=== PATIENT | female | born 1980 | race African-American/Black ===

== ENCOUNTER 2019-10-17 02:25 | Emergency (ER) | payer BC, OTHER ==
[~2019-10-17] VITALS: Ht 172.7 cm; Wt 95.9 kg
[2019-10-17] MEDS ORDERED: METF-960 PO (02:59)
[2019-10-17 03:03] LABS: GLUCOSE,POINT OF CARE 91 MG/DL (70-110)
[2019-10-17] MEDS ORDERED: ACETAMINOPHEN 500 MG TABLET PO ONE (04:30)
[2019-10-17] MEDS ORDERED: LIDOCAINE 5% TRANSDERMAL PATCH TD ONE (04:30)
[2019-10-17] MEDS ORDERED: OxyCODONE HCL 5 MG IR TABLET PO ONE (04:45)
[2019-10-17 06:30] VITALS: BP 124/88
== END 2019-10-17 07:42 | disposition home or self-care (01) ==
LOC: EMS 02:25
DX: S39.012A Strain of muscle, fascia and tendon of lower back, initial encounter (principal); J45.909 Unspecified asthma, uncomplicated; E11.9 Type 2 diabetes mellitus without complications; E78.00 Pure hypercholesterolemia, unspecified; I10 Essential (primary) hypertension; Z91.018 Allergy to other foods; Z79.84 Long term (current) use of oral hypoglycemic drugs; X58.XXXA Exposure to other specified factors, initial encounter; Y93.89 Activity, other specified; Y92.89 Other specified places as the place of occurrence of the external cause; Y99.8 Other external cause status